=== PATIENT | male | born 1975 | race African-American/Black ===

== ENCOUNTER 2016-10-04 21:46 | Emergency (ER) | payer OTHER ==
[2016-10-04 21:53] VITALS: BP 110/83; PULSE 81; TEMP 98.6; BMI 29.9
[2016-10-04] MEDS ORDERED: SODIUM CHLORIDE 1,000 ML IV ONE (22:07)
--- NOTE | 2016-10-04 22:14 | PDOC ---
History of Present Illness - General Chief Complaint: Weakness Stated Complaint: WEAKNESS Time Seen by Provider: 10/04/16 22:00 History Source: Patient Exam Limitations: No Limitations - History of Present Illness Initial Comments: 10/04/16 22:27 This is a 41-year-old male who comes in with his for evaluation of not feeling well. Patient is complaining that he is feeling weak. Patient denies any fevers however is complaining of some chills. Patient never took his temperature. Patient denies any cough, congestion, headache, neck stiffness, shortness of breath, chest pain, abdominal pain, nausea, vomiting, diarrhea. Patient said that he's been working out in the heat a lot and thinks that maybe he is dehydrated. Patient says he is otherwise healthy. PAST MEDICAL HISTORY: no significant history PAST SURGICAL HISTORY: no significant history FAMILY HISTORY: no pertinant history SOCIAL HISTORY: Pt lives with family and is employed. MEDICATIONS: reviewed ALLERGIES: As per nursing notes Review of Systems General: No fevers or chills, no weakness, no weight loss HEENT: No change in vision. No sore throat,. No ear pain CardioVascular: No chest pain or shortness of breath Respiratory:No cough, or wheezing. Gastrointestinal: no nausea, vomitting, diarrhea or constipation, No rectal bleeding Genitourinary: No dysuria, hematuria, or frequency Musculoskeletal: No joint or muscle pain or swelling Neurologic: No headache, vertigo, dizziness or loss of consciousness Psychiatric: nor depression Skin: No rashes or easy bruising Endocrine: no increased thirst or abnormal weight change Allergic: no skin or latex allergy All other systems reviewed and normal Exam: General: Well-nourished well-developed individual, no acute distress HEENT: Throat: Normal, tonsils normal, no erythema or exudate Neck: Supple, no meningeal signs, no lymphadenopathy Eyes::Pupils equal reactive and round, extraocular motion intact Chest: Nontender to palpation Cardiac: S1-S2 normal, regular rate and rhythm, no murmurs rubs or gallops Respiratory: Lungs clear to auscultation bilateral Abdomen: Soft, nondistended, normal bowel sounds, nontender to palpation diffusely Extremities: Warm, dry, no cyanosis, clubbing, or edema Skin: No rashes Neuro: Alert and oriented x3, nonfocal exam, grossly intact, normal gait Psych: Normal mood and affect EKG normal sinus rhythm at a rate of 66, no acute ST-T wave changes, normal intervals Assessment and plan: This is a 41-year-old male who works outside in the heat and comes in complaining of feeling fatigued with muscle cramps. Patient had a workup including labs which were normal. Patient was given IV fluids and feels better. Patient was told that he needs to do a better job of staying well hydrated and using solutions at have electrolytes in them to prevent the cramps. Patient discharged home will follow-up with his family care doctor as needed. Past History - Past Medical History Allergies/Adverse Reactions: Allergies Allergy/AdvReac Type Severity Reaction Status Date / Time No Known Allergies Allergy Verified 10/31/14 09:14 Home Medications: Ambulatory Orders NK [No Known Home Medication] 10/04/16 - Psycho/Social/Smoking Cessation Hx Anxiety: No Suicidal Ideation: No Smoking History: Unknown if ever smoked Have you smoked in the past 12 months: No Number of Cigarettes Smoked Daily: 0 Information on smoking cessation initiated: No Hx Alcohol Use: No Drug/Substance Use Hx: No Substance Use Type: None *Physical Exam - Vital Signs Last Vital Signs Temp Pulse Resp BP Pulse Ox 98.6 F 81 14 110/83 99 10/04/16 21:50 10/04/16 21:50 10/04/16 21:50 10/04/16 21:50 10/04/16 21:50 ED Treatment Course - LABORATORY CBC & Chemistry Diagram: 10/04/16 22:15 10/04/16 22:15 *DC/Admit/Observation/Transfer Diagnosis at time of Disposition: Heat exhaustion, unspecified Qualifiers: Encounter type: initial encounter Qualified Code(s): T67.5XXA - Heat exhaustion , unspecified, initial encounter - Discharge Dispostion Disposition: HOME Condition at time of disposition: Good Admit: No - Referrals Referrals: Marquise Martines MD [Primary Care Provider] - - Patient Instructions Additional Instructions: If you're working outside in the heat it is very important that you stay well hydrated with a electrolyte solution such as Gatorade, Powerade or any other sports type drink. For every bottle of Gatorade you drink you should also drink and equal amount of water. Return to the emergency department immediately with ANY new, persistent or worsening symptoms. Continue any medications as previously prescribed by your physician. You should follow up with your primary doctor as soon as possible regarding today's emergency department visit. . Please make sure your doctor reviews the results of your emergency evaluation. Thank you for coming to the Emergency Department today for your care. It was a pleasure to see you today. Please note that your evaluation is INCOMPLETE until you follow-up with your doctor.
[2016-10-04 22:28] LABS: MEAN PLT VOLUME 9.7 fl (7.5-11.1)
[2016-10-04 22:32] LABS: BASOPHIL 3.3 % (0-2.0); EOSINOPHIL 1.2 % (0-4.5); MCH 30.6 pg (25.7-33.7); MCHC 33.7 g/dl (32.0-35.9); NEUTROPHILS 51.4 % (42.8-82.8); PLATELET COUNT 215 K/MM3 (134-434); RDW 12.1 % (11.9-15.9); WHITE BLOOD COUNT 7.8 K/mm3 (4.0-10.8)
[2016-10-04 23:05] LABS: ALBUMIN 4.4 g/dl (3.5-5.0); BILIRUBIN,TOTAL 0.6 mg/dl (0.2-1.0); CALCIUM 9.1 mg/dl (8.4-10.2); COCKROFT - GAULT 106.91; CREATININE 1.4 mg/dl (0.6-1.3); TOT PROT 7.5 g/dl (6.4-8.3)
--- NOTE | 2016-10-05 07:53 | EKG ---
Test Reason : Blood Pressure : / mmHG Vent. Rate : 066 BPM Atrial Rate : 066 BPM P-R Int : 170 ms QRS Dur : 092 ms QT Int : 416 ms P-R-T Axes : 066 032 043 degrees QTc Int : 436 ms SINUS RHYTHM POSSIBLE LEFT ATRIAL ENLARGEMENT NO PREVIOUS ECGS AVAILABLE Confirmed by NIKI EDMONDSON MD ([id number]) on 10/05/2016 7:53:46 AM Referred By: SEYMOUR GARCIA Confirmed By:NIKI EDMONDSON MD
== END 2016-10-04 23:20 | disposition home or self-care (01) ==
LOC: FER 21:46
PROC: 3E0337Z Introduction of Electrolytic and Water Balance Substance into Peripheral Vein, Percutaneous Approach (ICD-10-PCS; principal; 2016-10-04)
DX: T67.5XXA Heat exhaustion, unspecified, initial encounter (principal)
CPT/HCPCS: 36415; 80053; 85025; 93005; 99283-25